=== PATIENT | male | born 1980 | race Caucasian/White ===

== ENCOUNTER 2024-12-17 07:17 | Emergency (ER) | payer MEDICAID ==
[~2024-12-17] VITALS: Ht 170.2 cm; Wt 100.0 kg
[~2024-12-17 07:17] MED LIST: ESCI-8 PO; LURA40TA2 PO
[2024-12-17 07:21] VITALS: TEMP 98.6
[2024-12-17 08:08] VITALS: BP 124/73; PULSE 99; RESP 16; O2SAT 99
== END 2024-12-17 08:12 | disposition home or self-care (01) ==
LOC: EMS 07:17
DX: F10.129 Alcohol abuse with intoxication, unspecified (principal); Z02.89 Encounter for other administrative examinations; Y90.9 Presence of alcohol in blood, level not specified
CPT/HCPCS: 99282; Z7502

== ENCOUNTER 2025-01-21 07:06 | Emergency (ER) | payer MEDICAID ==
[~2025-01-21] VITALS: Ht 175.3 cm; Wt 90.9 kg
[2025-01-21] MEDS ORDERED: LORazepam 2 MG/ML VIAL IM ONE (07:30)
[2025-01-21 07:33] LABS: PLATELET COUNT (AUTO) 165 K/uL (150-450); RED BLOOD CELL COUNT(AUTO) 4.46 MIL/uL (4.50-5.90); RED CELL DISTRIBUTION WIDTH 12.9 % (11.5-14.5); WHITE BLOOD COUNT (AUTO) 4.2 K/uL (4.5-11.0)
[2025-01-21 07:39] LABS: CALCIUM, TOTAL 9.0 mg/dL (8.8-10.5); CREATININE 0.82 mg/dL (0.60-1.30); GLOMERULAR FILTR. RATE CALC > 60 mL/min (>60); GLUCOSE,RANDOM 116 mg/dL (70-110); SODIUM SERUM 141 mmol/L (136-145); UREA NITROGEN, BLOOD 6 mg/dL (7-18)
[2025-01-21 10:15] LABS: RBC MORPHOLOGY COMMENT ABNORMAL RBC MORPH
[2025-01-21 13:38] VITALS: BP 141/82; PULSE 97; RESP 20; TEMP 98.2; O2SAT 98
== END 2025-01-21 13:47 | disposition home or self-care (01) ==
LOC: EMS 07:06
DX: F10.129 Alcohol abuse with intoxication, unspecified (principal); Z79.899 Other long term (current) drug therapy; Y90.9 Presence of alcohol in blood, level not specified
CPT/HCPCS: 99285; 80048; 85025; 36415; G0480